=== PATIENT | female | born 1935 | race American Indian/Alaskan Native ===

== ENCOUNTER 2017-11-25 06:41 | Day surgery (SDC) | payer MEDICARE ==
[2017-11-25] MEDS ORDERED: ECOTRIN PO NR (07:15)
[2017-11-25 08:00] LABS: Basophils % (Auto) 0.6 % (0.0-1.8); Eosinophils # (Auto) 0.4 K/mm3 (0.0-0.4); Eosinophils % (Auto) 4.6 % (0.0-4.3); Hematocrit 39.7 % (30.3-42.9); Hemoglobin 13.3 gm/dl (10.1-14.3); Lymphocytes # (Auto) 1.4 K/mm3 (1.2-5.4); Lymphocytes % (Auto) 16.8 % (13.4-35.0); Mean Corpuscular HGB Conc 34 % (30-34); Mean Corpuscular Hemoglobin 30 pg (28-32); Mean Corpuscular Volume 91 fl (79-97); Monocytes # (Auto) 0.3 K/mm3 (0.0-0.8); Monocytes % (Auto) 4.3 % (0.0-7.3); Platelet Count 231 K/mm3 (140-440); Red Blood Count 4.38 M/mm3 (3.65-5.03); Red Cell Distribution Width 13.4 % (13.2-15.2)
[2017-11-25] MEDS ORDERED: NACL 0.9% 500 ML 500 ML IV SCH (08:00)
[2017-11-25 08:05] LABS: BUN/Creatinine Ratio 19; Blood Urea Nitrogen 13 mg/dL (7-17); Calcium 9.3 mg/dL (8.4-10.2); Hemolysis Index 5
[2017-11-25 08:16] LABS: INR 0.93 (0.87-1.13)
[2017-11-25] MEDS ORDERED: XYLOCAINE 2% INFILTRATI ONE (08:47)
[2017-11-25] MEDS ORDERED: HEPARIN/NS 5000 UNIT/500ML(CATH LAB) 1,000 ML IR ONE (08:47)
[2017-11-25] MEDS ORDERED: HEPARIN 10,000 UNITS/10 ML ONE (08:47)
[2017-11-25] MEDS ORDERED: NITROGLYCERIN SYRINGE 0 ML ONE (08:47)
[2017-11-25] MEDS ORDERED: CALAN ONE (08:47)
[2017-11-25] MEDS ORDERED: VERSED ONE (08:48)
[2017-11-25] MEDS ORDERED: SUBLIMAZE ONE (08:48)
--- NOTE | 2017-11-25 10:48 | Cardiac Catherization Report ---
REASON FOR PROCEDURE: Chest pain and abnormal thallium stress test. PROCEDURE: The patient was prepped and draped in a sterile fashion after informed consent. Right femoral artery was entered using Seldinger technique followed by placement of a 6-Bengali sheath. Selective left and right coronary angiography was performed using #4 right and left Santana catheters. The pigtail catheter was used for left ventricular angiography. The catheters were removed, sheath removed, and hemostasis achieved using an Angio-Seal device. The patient was returned to the postprocedure unit in stable condition. There were no complications. FINDINGS: HEMODYNAMICS: Left ventricle end diastolic pressure was 27, following coronary angiography. Ascending aortic pressure was 145/73. There was no significant pressure gradient on pullback across the aortic valve. CORONARY ANGIOGRAPHY: Left main coronary artery was free of significant disease, but there are diffuse mild irregularities of the LAD and diagonal branches. The circumflex artery and its obtuse marginal branches contained diffuse mild atherosclerosis. The right coronary artery was dominant. This vessel contained aneurysmal dilatation of its distal AV groove segment, but otherwise mild irregularities. There was normal left ventricular systolic function, ejection fraction 60-65%. CONCLUSION: 1. 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 2. Otherwise, mild nonobstructive irregularities in the left and right coronary arteries. 3. Normal left ventricular systolic function, ejection fraction 60-65%. RECOMMENDATION: Risk factor modification and medical therapy. Oral antiplatelet therapy with aspirin and/or Plavix is recommended for asymptomatic coronary artery aneurysm. [facility]# [id number] FLAKITA/NASIR
--- NOTE | 2017-11-25 10:55 | Discharge Summary ---
Short Stay Discharge Plan Activity: advance as tolerated Weight Bearing Status: Partial Weight Bearing Diet: low fat, low cholesterol, low salt Wound: keep clean and dry Special Instructions: no heavy lifting (3 days) Follow up with: PARMINDER GILES MD [Primary Care Provider] - 7 Days THANIA GAMA MD [Staff Physician] - 7 Days
[2017-11-25] MEDS ORDERED: NACL 0.9% 1000 ML 1,000 ML IV SCH (11:00)
[2017-11-25 14:08] VITALS: BP 146/70
== END 2017-11-25 14:25 | disposition home or self-care (01) ==
LOC: CATHLABREC 06:41
PROVIDERS: ATTEND Internal Medicine Cardiovascular Disease
DX: I35.8 Other nonrheumatic aortic valve disorders (principal); I70.0 Atherosclerosis of aorta; I10 Essential (primary) hypertension; J45.909 Unspecified asthma, uncomplicated; E78.5 Hyperlipidemia, unspecified; E66.9 Obesity, unspecified; M13.0 Polyarthritis, unspecified; Z87.891 Personal history of nicotine dependence; Z68.42 Body mass index [BMI] 45.0-49.9, adult; Z79.82 Long term (current) use of aspirin; Z79.899 Other long term (current) drug therapy; Z90.710 Acquired absence of both cervix and uterus; Z98.890 Other specified postprocedural states; Z79.01 Long term (current) use of anticoagulants
CPT/HCPCS: 36415; 80048; 85025; 85610; 85730; 93005; 93010; 93458; 99156; C1894; J1644; J2250; J3010; J7040; Q9967

== ENCOUNTER → 2017-12-15 | Outpatient (CLI) | payer MEDICARE | LOC: SLR 11:00 | PROVIDERS: ATTEND Internal Medicine Critical Care Medicine | DX: G47.30 Sleep apnea, unspecified (principal); I27.20 Pulmonary hypertension, unspecified | CPT/HCPCS: G0399 ==